=== PATIENT | female | born 1985 | race African-American/Black ===

== ENCOUNTER 2019-06-02 14:05 | Emergency (ER) | payer MEDICAID ==
[~2019-06-02] VITALS: Ht 175.3 cm; Wt 61.0 kg
[~2019-06-02 14:05] MED LIST: PRENATAL
[2019-06-02] MEDS ORDERED: SODIUM CHLORIDE 0.9% 1,000 ML IV ONE (18:44)
[2019-06-02] MEDS ORDERED: ONDANSETRON HCL 4MG/2ML INJ IV STA (18:44)
[2019-06-02 19:01] LABS: CLARITY URINE CLEAR (CLEAR); COLOR URINE YELLOW (YELLOW); KETONES URINE TRACE (NEGATIVE); LEUKOCYTE ESTERASE URINE 2+ (NEGATIVE); NITRITE URINE NEGATIVE (NEGATIVE); OCCULT BLOOD URINE NEGATIVE (NEGATIVE); PH URINE 6.5 (4.5-8.0); PROTEIN URINE NEGATIVE (NEGATIVE); SPECIFIC GRAVITY URINE 1.028 (1.005-1.030)
[2019-06-02 19:04] LABS: CHLORIDE 110 mEq/L (98-107)
[2019-06-02 19:05] LABS: BASOPHILS % 0.6 % (0.0-2.0); EOSINOPHILS % 2.7 % (0.0-5.0); HEMATOCRIT. 36.4 % (36.0-48.0); HEMOGLOBIN. 12.1 g/dL (12.0-16.0); LYMPHOCYTES % 28.3 % (20.0-50.0); MEAN CORPUSCULAR HEMOGLOBIN 30.7 pg (28.0-32.0); MEAN CORPUSCULAR VOLUME 92.1 fL (81.0-99.0); MEAN PLATELET VOLUME 7.5 fl (7.4-10.4); MONOCYTES % 5.6 % (2.0-8.0); NEUTROPHILS % 62.8 % (40.0-76.0); PLATELET 231 x1000/uL (130-400); RED BLOOD CELL COUNT 3.95 mill/uL (4.2-5.4); RED CELL DISTRIBUTION WIDTH 12.6 % (11.6-14.6)
[2019-06-02] MEDS ORDERED: ACETAMINOPHEN 325MG TABLET PO STA (19:07)
[2019-06-02 20:38] VITALS: BP 105/63
== END 2019-06-02 22:56 | disposition home or self-care (01) ==
LOC: ER 14:05
DX: O23.41 Unspecified infection of urinary tract in pregnancy, first trimester (principal); O26.891 Other specified pregnancy related conditions, first trimester; R10.32 Left lower quadrant pain; O21.8 Other vomiting complicating pregnancy; Z3A.01 Less than 8 weeks gestation of pregnancy; Z90.49 Acquired absence of other specified parts of digestive tract
CPT/HCPCS: 36415; 76801; 76817; 80053; 81003; 83690; 84702; 85025; 86850; 86900; 86901; 96361; 96374; 99284; J2405; J7030; Z7610

== ENCOUNTER 2019-06-27 14:25 | Emergency (ER) | payer MEDICAID ==
[~2019-06-27] VITALS: Ht 172.7 cm; Wt 65.0 kg
[2019-06-27] MEDS ORDERED: SODIUM CHLORIDE 0.9% 1,000 ML IV ONE (14:52)
[2019-06-27 15:12] LABS: CLARITY URINE TURBID (CLEAR); COLOR URINE YELLOW (YELLOW); KETONES URINE TRACE (NEGATIVE); LEUKOCYTE ESTERASE URINE 2+ (NEGATIVE); NITRITE URINE NEGATIVE (NEGATIVE); OCCULT BLOOD URINE 3+ (NEGATIVE); PROTEIN URINE TRACE (NEGATIVE); SPECIFIC GRAVITY URINE 1.029 (1.005-1.030)
[2019-06-27 15:27] LABS: *COCAINE SCREEN URINE NEGATIVE (NEGATIVE)
[2019-06-27 15:28] LABS: *AMPHETAMINES SCREEN URINE NEGATIVE (NEGATIVE); *BARBITURATES SCREEN URINE NEGATIVE (NEGATIVE); *BENZODIAZEPINES SCREEN URINE NEGATIVE (NEGATIVE); CANNABINOID URINE SCREEN NEGATIVE (NEGATIVE); METHADONE URINE SCREEN NEGATIVE (NEGATIVE); OPIATES URINE SCREEN NEGATIVE (NEGATIVE); PHENCYCLIDINE URINE SCREEN NEGATIVE (NEGATIVE)
[2019-06-27 15:32] LABS: BASOPHILS % 0.8 % (0.0-2.0); EOSINOPHILS % 1.6 % (0.0-5.0); HEMOGLOBIN. 12.9 g/dL (12.0-16.0); LYMPHOCYTES % 17.2 % (20.0-50.0); MEAN CORPUSCULAR HEMOGLOBIN 31.2 pg (28.0-32.0); MEAN CORPUSCULAR VOLUME 92.1 fL (81.0-99.0); MEAN PLATELET VOLUME 7.5 fl (7.4-10.4); NEUTROPHILS % 74.4 % (40.0-76.0); PLATELET 252 x1000/uL (130-400); RED BLOOD CELL COUNT 4.12 mill/uL (4.2-5.4); RED CELL DISTRIBUTION WIDTH 12.8 % (11.6-14.6)
[2019-06-27 15:35] LABS: CHLORIDE 105 mEq/L (98-107)
[2019-06-27 16:01] LABS: B-HCG QUANTITATIVE 123057 mIU/mL (<3)
[2019-06-27] MEDS ORDERED: ACETAMINOPHEN WITH CODEINE 300/30MG TABLET PO ONE (16:45)
[2019-06-27] MEDS ORDERED: ONDANSETRON 4MG ODT PO ONE (16:45)
[2019-06-27 16:53] VITALS: BP 107/69
== END 2019-06-27 18:24 | disposition home or self-care (01) ==
LOC: ER 14:25
DX: O20.0 Threatened abortion (principal); O26.891 Other specified pregnancy related conditions, first trimester; Z33.2 Encounter for elective termination of pregnancy; Z3A.09 9 weeks gestation of pregnancy; Z90.49 Acquired absence of other specified parts of digestive tract
CPT/HCPCS: 36415; 76801; 80053; 80305; 81003; 81025; 84702; 85025; 85610; 86850; 86900; 86901; 99284; J7030; Q0162; Z7610

== ENCOUNTER 2019-12-09 10:53 | Emergency (ER) | payer MEDICAID ==
[~2019-12-09] VITALS: Ht 172.7 cm; Wt 62.0 kg
[2019-12-09 11:27] LABS: CLARITY URINE CLEAR (CLEAR); COLOR URINE YELLOW (YELLOW); KETONES URINE NEGATIVE (NEGATIVE); LEUKOCYTE ESTERASE URINE TRACE (NEGATIVE); NITRITE URINE NEGATIVE (NEGATIVE); OCCULT BLOOD URINE 2+ (NEGATIVE); PH URINE 6.5 (4.5-8.0); PROTEIN URINE NEGATIVE (NEGATIVE); UROBILINOGEN URINE 0.2 E.U./dL (0.2-1.0)
[2019-12-09 14:15] LABS: BASOPHILS % 0.3 % (0.0-2.0); EOSINOPHILS % 3.2 % (0.0-5.0); HEMATOCRIT. 36.3 % (36.0-48.0); HEMOGLOBIN. 12.6 g/dL (12.0-16.0); LYMPHOCYTES % 25.5 % (20.0-50.0); MEAN CORPUSCULAR VOLUME 92.4 fL (81.0-99.0); MEAN PLATELET VOLUME 7.2 fl (7.4-10.4); MONOCYTES % 5.3 % (2.0-8.0); NEUTROPHILS % 65.7 % (40.0-76.0); PLATELET 210 x1000/uL (130-400); RED BLOOD CELL COUNT 3.93 mill/uL (4.2-5.4); RED CELL DISTRIBUTION WIDTH 12.5 % (11.6-14.6)
[2019-12-09 14:19] LABS: CHLORIDE 110 mEq/L (98-107)
[2019-12-09 14:31] LABS: B-HCG QUANTITATIVE < 1 mIU/mL (<3)
[2019-12-09 15:40] VITALS: BP 122/86
[2019-12-09 15:42] LABS: *AMPHETAMINES SCREEN URINE NEGATIVE (NEGATIVE); *BARBITURATES SCREEN URINE NEGATIVE (NEGATIVE); *BENZODIAZEPINES SCREEN URINE NEGATIVE (NEGATIVE); METHADONE URINE SCREEN NEGATIVE (NEGATIVE); OPIATES URINE SCREEN NEGATIVE (NEGATIVE)
[2019-12-09 15:43] LABS: CANNABINOID URINE SCREEN NEGATIVE (NEGATIVE); PHENCYCLIDINE URINE SCREEN NEGATIVE (NEGATIVE)
[2019-12-09 15:53] LABS: *COCAINE SCREEN URINE PRESUMTIVE POSITIVE (NEGATIVE)
== END 2019-12-09 16:10 | disposition home or self-care (01) ==
LOC: ER 10:53
DX: O02.1 Missed abortion (principal); R03.0 Elevated blood-pressure reading, without diagnosis of hypertension
CPT/HCPCS: 36415; 76830; 76856; 80053; 80305; 81003; 81025; 84702; 85025; 86850; 86900; 99284

== ENCOUNTER 2024-08-28 09:38 | Emergency (ER) | payer MEDICAID ==
[~2024-08-28] VITALS: Ht 172.7 cm; Wt 70.0 kg
[2024-08-28 09:46] VITALS: O2SAT 99
[2024-08-28] MEDS: KETOROLAC 30MG/ML VIAL IM STA (11:05)
[2024-08-28 11:32] LABS: HEMATOCRIT. 37.8 % (36.0-48.0); HEMOGLOBIN. 12.9 g/dL (12.0-16.0); MEAN CORPUSCULAR VOLUME 91.3 fL (81.0-99.0); MEAN PLATELET VOLUME 7.5 fl (7.4-10.4); PLATELET 276 x1000/uL (130-400); RED BLOOD CELL COUNT 4.14 mill/uL (4.2-5.4); WHITE BLOOD COUNT 11.2 x1000/uL (4.5-11.0)
[2024-08-28 11:34] LABS: CLARITY URINE CLOUDY (CLEAR); COLOR URINE YELLOW (YELLOW); GLUCOSE URINE NEGATIVE (NEGATIVE); KETONES URINE 4+ (NEGATIVE); LEUKOCYTE ESTERASE URINE 3+ (NEGATIVE); NITRITE URINE POSITIVE (NEGATIVE); OCCULT BLOOD URINE 3+ (NEGATIVE); PROTEIN URINE 2+ (NEGATIVE); SPECIFIC GRAVITY URINE 1.012 (1.005-1.030)
[2024-08-28 11:35] LABS: CHLORIDE 98 mEq/L (98-107); POTASSIUM 3.3 mEq/L (3.5-5.1); SODIUM 134 mEq/L (136-145)
[2024-08-28 11:36] LABS: CALCIUM 9.4 mg/dL (8.7-10.4); CARBON DIOXIDE 26 mEq/L (21-32)
[2024-08-28 11:39] LABS: DIFFERENTIAL COMMENT 1
[2024-08-28 11:41] LABS: GLUCOSE 99 mg/dL (70-105); UREA NITROGEN BLOOD 9 mg/dL (9-23)
[2024-08-28 11:57] LABS: BACTERIA URINE 4+; SQUAMOUS EPITHELIAL CELL URINE NONE SEEN /lpf (RARE/1+); WBC URINE TNTC /hpf (0-2); YEAST URINE NONE SEEN
[2024-08-28] MEDS ORDERED: IBUP-2029 MT (13:35)
[2024-08-28] MEDS ORDERED: CEPH500T MT (13:35)
[2024-08-28] MEDS ORDERED: MEDR10TA11 MT (13:37)
[2024-08-28 13:59] LABS: PLATELET ESTIMATE NORMAL
[2024-08-28 14:07] VITALS: BP 134/88; PULSE 94; RESP 18; TEMP 36.7; O2SAT 99
== END 2024-08-28 14:10 | disposition home or self-care (01) ==
LOC: ER 09:46
DX: N39.0 Urinary tract infection, site not specified (principal); Z98.51 Tubal ligation status; Z90.49 Acquired absence of other specified parts of digestive tract; Z79.899 Other long term (current) drug therapy
CPT/HCPCS: 99285; 76830; 76856; 80048; 81003; 81025; 85025; 87086; 87186; 36415; 96372; J1885

== ENCOUNTER 2024-09-17 15:04 | Emergency (ER) | payer MEDICAID, OTHER ==
[~2024-09-17] VITALS: Ht 172.7 cm; Wt 65.0 kg
[~2024-09-17 15:04] MED LIST changes: +CEPH500T MT; +IBUP-2029 MT; +MEDR10TA11 MT; -PRENATAL
[2024-09-17 15:16] VITALS: O2SAT 100
[2024-09-17 15:41] LABS: BASOPHILS % 1.3 % (0.0-2.0); EOSINOPHILS % 1.1 % (0.0-5.0); HEMATOCRIT. 32.3 % (36.0-48.0); HEMOGLOBIN. 10.8 g/dL (12.0-16.0); LYMPHOCYTES % 23.5 % (20.0-50.0); MEAN CORPUSCULAR HEMOGLOBIN 30.5 pg (28.0-32.0); MEAN CORPUSCULAR HGB CONC 33.6 g/dL (31.0-37.0); MONOCYTES % 4.2 % (2.0-8.0); NEUTROPHILS % 69.9 % (40.0-76.0); PLATELET 393 x1000/uL (130-400); RED BLOOD CELL COUNT 3.55 mill/uL (4.2-5.4); RED CELL DISTRIBUTION WIDTH 12.7 % (11.6-14.6); WHITE BLOOD COUNT 5.6 x1000/uL (4.5-11.0)
[2024-09-17 15:47] LABS: CHLORIDE 103 mEq/L (98-107); POTASSIUM 3.8 mEq/L (3.5-5.1); SODIUM 139 mEq/L (136-145)
[2024-09-17 15:48] LABS: CARBON DIOXIDE 27 mEq/L (21-32)
[2024-09-17 15:49] LABS: CALCIUM 9.2 mg/dL (8.7-10.4)
[2024-09-17 15:53] LABS: CREATININE 0.8 mg/dL (0.6-1.0); GLUCOSE 91 mg/dL (70-105); UREA NITROGEN BLOOD 8 mg/dL (9-23)
[2024-09-17 17:37] LABS: CLARITY URINE CLEAR (CLEAR); COLOR URINE YELLOW (YELLOW); GLUCOSE URINE NEGATIVE (NEGATIVE); KETONES URINE NEGATIVE (NEGATIVE); LEUKOCYTE ESTERASE URINE 2+ (NEGATIVE); NITRITE URINE NEGATIVE (NEGATIVE); OCCULT BLOOD URINE TRACE (NEGATIVE); PH URINE 6.5 (4.5-8.0); PROTEIN URINE NEGATIVE (NEGATIVE); SPECIFIC GRAVITY URINE 1.011 (1.005-1.030); UROBILINOGEN URINE 0.2 E.U./dL (0.2-1.0)
[2024-09-17 17:51] LABS: BACTERIA URINE NONE SEEN; RBC URINE 0-2 /hpf (0-2); SQUAMOUS EPITHELIAL CELL URINE FEW /lpf (RARE/1+)
[2024-09-17 18:28] VITALS: BP 129/76; PULSE 99; RESP 18; TEMP 37.1; O2SAT 100
== END 2024-09-17 18:30 | disposition home or self-care (01) ==
LOC: ER 15:04
DX: N93.9 Abnormal uterine and vaginal bleeding, unspecified (principal); N39.0 Urinary tract infection, site not specified; I95.89 Other hypotension; Z79.3 Long term (current) use of hormonal contraceptives; Z90.49 Acquired absence of other specified parts of digestive tract; Z98.51 Tubal ligation status
CPT/HCPCS: 36415; 80048; 81003; 85025; 99283

== ENCOUNTER 2024-11-27 10:53 | Emergency (ER) | payer MEDICAID ==
[~2024-11-27] VITALS: Ht 172.7 cm; Wt 67.0 kg
[2024-11-27 11:07] VITALS: O2SAT 100
[2024-11-27 11:24] LABS: BASOPHILS % 0.8 % (0.0-2.0); EOSINOPHILS % 2.2 % (0.0-5.0); HEMATOCRIT. 31.1 % (36.0-48.0); HEMOGLOBIN. 10.2 g/dL (12.0-16.0); LYMPHOCYTES % 26.3 % (20.0-50.0); MEAN CORPUSCULAR HEMOGLOBIN 27.1 pg (28.0-32.0); MEAN CORPUSCULAR HGB CONC 32.7 g/dL (31.0-37.0); MEAN CORPUSCULAR VOLUME 82.8 fL (81.0-99.0); MEAN PLATELET VOLUME 6.4 fl (7.4-10.4); MONOCYTES % 6.5 % (2.0-8.0); NEUTROPHILS % 64.2 % (40.0-76.0); PLATELET 412 x1000/uL (130-400); RED BLOOD CELL COUNT 3.76 mill/uL (4.2-5.4); RED CELL DISTRIBUTION WIDTH 13.1 % (11.6-14.6); WHITE BLOOD COUNT 5.1 x1000/uL (4.5-11.0)
[2024-11-27 11:33] LABS: CARBON DIOXIDE 28 mEq/L (21-32); CHLORIDE 105 mEq/L (98-107); POTASSIUM 3.9 mEq/L (3.5-5.1); SODIUM 140 mEq/L (136-145)
[2024-11-27 11:34] LABS: CALCIUM 8.7 mg/dL (8.7-10.4)
[2024-11-27 11:38] LABS: CREATININE 0.7 mg/dL (0.6-1.0); GLUCOSE 96 mg/dL (70-105)
[2024-11-27 11:39] LABS: UREA NITROGEN BLOOD 7 mg/dL (9-23)
[2024-11-27 11:44] LABS: PROTHROMBIN TIME 10.4 sec (9.6-11.0)
[2024-11-27 12:02] LABS: TROPONIN I HIGH SENSITIVITY < 4 ng/L (3.0-34)
[2024-11-27 13:33] LABS: CLARITY URINE CLEAR (CLEAR); COLOR URINE YELLOW (YELLOW); GLUCOSE URINE NEGATIVE (NEGATIVE); KETONES URINE NEGATIVE (NEGATIVE); LEUKOCYTE ESTERASE URINE NEGATIVE (NEGATIVE); NITRITE URINE NEGATIVE (NEGATIVE); OCCULT BLOOD URINE TRACE (NEGATIVE); PH URINE 7.5 (4.5-8.0); PROTEIN URINE NEGATIVE (NEGATIVE); SPECIFIC GRAVITY URINE 1.013 (1.005-1.030); UROBILINOGEN URINE 0.2 E.U./dL (0.2-1.0)
[2024-11-27 14:25] LABS: RBC URINE 0-2 /hpf (0-2); SQUAMOUS EPITHELIAL CELL URINE FEW /lpf (RARE/1+); WBC URINE 0-2 /hpf (0-2)
[2024-11-27 14:26] LABS: BACTERIA URINE TRACE
[2024-11-27 14:34] LABS: ALANINE AMINOTRANSFERASE < 7 IU/L (10-49); ALBUMIN 4.1 g/dL (3.2-4.8); ASPARTATE AMINOTRANSFERASE 14 IU/L (<34); BILIRUBIN DIRECT 0.1 mg/dL (<=3.0); BILIRUBIN TOTAL 0.3 mg/dL (0.1-1.0); PROTEIN TOTAL 7.5 g/dL (6.0-8.3)
[2024-11-27 14:41] LABS: HCG SCREEN NEGATIVE
[2024-11-27] MEDS: IBUPROFEN 600MG TABLET PO ONE (16:15)
[2024-11-27] MEDS ORDERED: METR-167 MT (16:17)
[2024-11-27] MEDS ORDERED: IBUP-2029 MT (16:17)
[2024-11-27 16:40] VITALS: BP 110/70; PULSE 70; RESP 16; TEMP 36.8; O2SAT 100
== END 2024-11-27 16:42 | disposition home or self-care (01) ==
LOC: ER 10:53
DX: N76.0 Acute vaginitis (principal); R07.89 Other chest pain; Z98.51 Tubal ligation status; Z90.49 Acquired absence of other specified parts of digestive tract
CPT/HCPCS: 36415; 71046; 76830; 76856; 80048; 80076; 81003; 81025; 83880; 84484; 84703; 85025; 86592; 87210; 87491; 87591; 93005; 99285

== ENCOUNTER 2025-01-01 16:18 | Inpatient (IN) | payer MEDICAID ==
[~2025-01-01] VITALS: Ht 172.7 cm; Wt 68.0 kg
[~2025-01-01 16:18] MED LIST changes: +METR-167 MT
[2025-01-01] MEDS: KETOROLAC 15MG/ML VIAL IV ONE (17:09)
[2025-01-01] MEDS: ONDANSETRON HCL 4MG/2ML INJ IV STA (17:09)
[2025-01-01 17:10] LABS: BASOPHILS % 0.7 % (0.0-2.0); DIFFERENTIAL COMMENT 0; EOSINOPHILS % 1.2 % (0.0-5.0); HEMATOCRIT. 29.8 % (36.0-48.0); HEMOGLOBIN. 9.6 g/dL (12.0-16.0); LYMPHOCYTES % 23.5 % (20.0-50.0); MEAN CORPUSCULAR HEMOGLOBIN 25.3 pg (28.0-32.0); MEAN CORPUSCULAR HGB CONC 32.3 g/dL (31.0-37.0); MEAN CORPUSCULAR VOLUME 78.2 fL (81.0-99.0); MEAN PLATELET VOLUME 6.4 fl (7.4-10.4); MONOCYTES % 6.8 % (2.0-8.0); NEUTROPHILS % 67.8 % (40.0-76.0); PLATELET 458 x1000/uL (130-400); RED BLOOD CELL COUNT 3.81 mill/uL (4.2-5.4); WHITE BLOOD COUNT 5.9 x1000/uL (4.5-11.0)
[2025-01-01 17:20] LABS: CHLORIDE 104 mEq/L (98-107); POTASSIUM 3.7 mEq/L (3.5-5.1); PROTHROMBIN TIME 10.9 sec (9.6-11.0); SODIUM 138 mEq/L (136-145)
[2025-01-01] MEDS: SODIUM CHLORIDE 0.9% 1,000 ML IV ONE (17:20)
[2025-01-01 17:21] LABS: CALCIUM 8.7 mg/dL (8.7-10.4); CARBON DIOXIDE 26 mEq/L (21-32)
[2025-01-01 17:26] LABS: CREATININE 0.7 mg/dL (0.6-1.0); GLUCOSE 89 mg/dL (70-105); UREA NITROGEN BLOOD < 5 mg/dL (9-23)
[2025-01-01 17:28] LABS: ALANINE AMINOTRANSFERASE < 7 IU/L (10-49); ALBUMIN 3.8 g/dL (3.2-4.8); ASPARTATE AMINOTRANSFERASE 8 IU/L (<34); BILIRUBIN DIRECT 0.1 mg/dL (<=3.0); BILIRUBIN TOTAL 0.3 mg/dL (0.1-1.0); PROTEIN TOTAL 7.1 g/dL (6.0-8.3)
[2025-01-01 17:30] LABS: CLARITY URINE CLEAR (CLEAR); COLOR URINE YELLOW (YELLOW); GLUCOSE URINE NEGATIVE (NEGATIVE); KETONES URINE NEGATIVE (NEGATIVE); LEUKOCYTE ESTERASE URINE NEGATIVE (NEGATIVE); NITRITE URINE NEGATIVE (NEGATIVE); OCCULT BLOOD URINE 1+ (NEGATIVE); PROTEIN URINE NEGATIVE (NEGATIVE); SPECIFIC GRAVITY URINE 1.008 (1.005-1.030); UROBILINOGEN URINE 0.2 E.U./dL (0.2-1.0)
[2025-01-01 17:38] LABS: HCG SCREEN NEGATIVE
[2025-01-01 17:56] LABS: BACTERIA URINE TRACE; SQUAMOUS EPITHELIAL CELL URINE FEW /lpf (RARE/1+); WBC URINE 0-2 /hpf (0-2)
[2025-01-01] MEDS: METOCLOPRAMIDE HCL 10MG/2ML VIAL IV ONE (21:44)
[2025-01-01] MEDS: MORPHINE SULFATE 4 MG/ML INJ (FOR IV/IM USE) IV ONE (21:44)
[2025-01-01] MEDS ORDERED: CLONIDINE 0.1MG TABLET PO PRN (23:15)
[2025-01-01] MEDS ORDERED: IPRATROPIUM/ALBUTEROL 0.5-3(2.5)MG/3ML NEB HHN PRN (23:15)
[2025-01-01] MEDS ORDERED: GUAIFENESIN 200MG/10ML SUGAR FREE UDC PO PRN (23:15)
[2025-01-01] MEDS ORDERED: ACETAMINOPHEN 325MG TABLET PO PRN (23:15)
[2025-01-01 23:30] VITALS: BP 101/57; PULSE 65; RESP 18; TEMP 36.5; TEMP 36.6; O2SAT 100
[2025-01-02] VITALS: BP 99/61; PULSE 63; RESP 17; TEMP 36.9; O2SAT 100
[2025-01-02] MEDS: ONDANSETRON HCL 4MG/2ML INJ IV PRN (00:35)
[2025-01-02] MEDS: SODIUM CHLORIDE 0.9% 1,000 ML IV SCH (00:35)
[2025-01-02] MEDS: ACETAMINOPHEN 325MG TABLET PO PRN (00:35)
[2025-01-02 01:07] LABS: IRON 15 ug/dL (50-170)
[2025-01-02 01:10] LABS: TOTAL IRON BINDING CAPACITY 257 ug/dl (250-425)
[2025-01-02 01:13] LABS: FOLIC ACID (FOLATE) SERUM 6.93 ng/mL (>5.38); VITAMIN B12 SERUM 643 pg/mL (211-911)
[2025-01-02] MEDS ORDERED: FERR325T6 PO (01:38)
[2025-01-02 04:00] VITALS: BP 100/65; PULSE 60; RESP 18; TEMP 36.8; O2SAT 100
[2025-01-02] MEDS: IRON SUCROSE COMPLEX 100 MG/5 ML ML IV NR (06:06)
[2025-01-02 07:08] LABS: BASOPHILS % 0.8 % (0.0-2.0); CHLORIDE 108 mEq/L (98-107); DIFFERENTIAL COMMENT 0; EOSINOPHILS % 2.2 % (0.0-5.0); HEMATOCRIT. 27.3 % (36.0-48.0); HEMOGLOBIN. 8.8 g/dL (12.0-16.0); LYMPHOCYTES % 28.1 % (20.0-50.0); MEAN CORPUSCULAR HEMOGLOBIN 25.5 pg (28.0-32.0); MEAN CORPUSCULAR HGB CONC 32.4 g/dL (31.0-37.0); MEAN CORPUSCULAR VOLUME 78.7 fL (81.0-99.0); MEAN PLATELET VOLUME 6.8 fl (7.4-10.4); MONOCYTES % 8.4 % (2.0-8.0); NEUTROPHILS % 60.5 % (40.0-76.0); PLATELET 394 x1000/uL (130-400); POTASSIUM 3.7 mEq/L (3.5-5.1); RED BLOOD CELL COUNT 3.47 mill/uL (4.2-5.4); RED CELL DISTRIBUTION WIDTH 14.3 % (11.6-14.6); SODIUM 141 mEq/L (136-145); WHITE BLOOD COUNT 4.8 x1000/uL (4.5-11.0)
[2025-01-02 07:09] LABS: CALCIUM 8.1 mg/dL (8.7-10.4); CARBON DIOXIDE 24 mEq/L (21-32)
[2025-01-02 07:14] LABS: CREATININE 0.6 mg/dL (0.6-1.0); GLUCOSE 71 mg/dL (70-105); TRIGLYCERIDE 73 mg/dL (0-150); UREA NITROGEN BLOOD < 5 mg/dL (9-23)
[2025-01-02 07:15] LABS: LDL CHOLESTEROL 50 mg/dL (5-100)
[2025-01-02 07:16] LABS: ALBUMIN 3.3 g/dL (3.2-4.8); CHOLESTEROL 98 mg/dL (<200); HDL CHOLESTEROL 34 mg/dL (>65)
[2025-01-02 07:18] LABS: THYROID STIMULATING HORMONE 1.83 uIU/mL (0.55-4.78)
[2025-01-02 08:00] VITALS: BP 108/66; PULSE 74; RESP 18; TEMP 36.6; O2SAT 100
[2025-01-02 08:40] LABS: *AMPHETAMINES SCREEN URINE NEGATIVE (NEGATIVE); *BARBITURATES SCREEN URINE NEGATIVE (NEGATIVE); *BENZODIAZEPINES SCREEN URINE NEGATIVE (NEGATIVE); *COCAINE SCREEN URINE PRESUMPTIVE POSITIVE (NEGATIVE); CANNABINOID URINE SCREEN PRESUMPTIVE POSITIVE (NEGATIVE); ECSTASY MDMA SCREEN URINE NEGATIVE (NEGATIVE); METHADONE URINE SCREEN NEGATIVE (NEGATIVE); OPIATES URINE SCREEN NEGATIVE (NEGATIVE); PHENCYCLIDINE URINE SCREEN NEGATIVE (NEGATIVE)
[2025-01-02] MEDS: METRONIDAZOLE 500MG TABLET PO SCH (08:50)
[2025-01-02] MEDS: DOCUSATE SODIUM 100MG CAPSULE PO PRN (11:59)
[2025-01-02 12:00] VITALS: BP 92/51; PULSE 74; RESP 18; TEMP 36.6; O2SAT 100
[2025-01-02] MEDS ORDERED: KETOROLAC 15MG/ML VIAL IV PRN (12:15)
[2025-01-02] MEDS ORDERED: KETO10TA2 MT (12:22)
[2025-01-02 13:22] VITALS: BP 102/67; PULSE 65; TEMP 96.1; O2SAT 98
[2025-01-02 13:46] VITALS: TEMP 96.1
== END 2025-01-02 15:18 | disposition home or self-care (01) | DRG 532 ==
LOC: ER 16:18 → 5WST 22:04 → EDBEDREQ 22:47 → EDBEDREQSVC 22:47 → EDBEDREQTM 22:47 → ENRESERV 23:01 → 5WST 23:33
PROVIDERS: ADMIT Internal Medicine; ATTEND Internal Medicine
DX: D25.9 Leiomyoma of uterus, unspecified (principal); D50.9 Iron deficiency anemia, unspecified; N76.0 Acute vaginitis; F12.90 Cannabis use, unspecified, uncomplicated; F14.10 Cocaine abuse, uncomplicated; N92.0 Excessive and frequent menstruation with regular cycle; R19.09 Other intra-abdominal and pelvic swelling, mass and lump; R31.9 Hematuria, unspecified; Z87.440 Personal history of urinary (tract) infections; Z90.49 Acquired absence of other specified parts of digestive tract
CPT/HCPCS: 36415; 74176; 76830; 76856; 80048; 80061; 80076; 80305; 81003; 82040; 82607; 82746; 83540; 83550; 84439; 84443; 84703; 85025; 99285; J1885; J2270; J2405; J2765; J7030

== ENCOUNTER 2025-01-07 17:03 | Emergency (ER) | payer MEDICAID ==
[~2025-01-07] VITALS: Ht 172.7 cm; Wt 66.0 kg
[~2025-01-07 17:03] MED LIST changes: -CEPH500T MT; +FERR325T6 PO; -IBUP-2029 MT; +KETO10TA2 MT; -MEDR10TA11 MT; -METR-167 MT
[2025-01-07 17:15] VITALS: O2SAT 100
[2025-01-07 18:16] LABS: BASOPHILS % 0.3 % (0.0-2.0); DIFFERENTIAL COMMENT 0; EOSINOPHILS % 0.9 % (0.0-5.0); HEMATOCRIT. 28.3 % (36.0-48.0); LYMPHOCYTES % 17.9 % (20.0-50.0); MEAN CORPUSCULAR HEMOGLOBIN 24.6 pg (28.0-32.0); MEAN CORPUSCULAR HGB CONC 31.7 g/dL (31.0-37.0); MEAN CORPUSCULAR VOLUME 77.5 fL (81.0-99.0); MEAN PLATELET VOLUME 6.5 fl (7.4-10.4); MONOCYTES % 8.7 % (2.0-8.0); NEUTROPHILS % 72.2 % (40.0-76.0); PLATELET 464 x1000/uL (130-400); RED BLOOD CELL COUNT 3.66 mill/uL (4.2-5.4); RED CELL DISTRIBUTION WIDTH 14.8 % (11.6-14.6); WHITE BLOOD COUNT 5.7 x1000/uL (4.5-11.0)
[2025-01-07 18:22] LABS: CHLORIDE 104 mEq/L (98-107); POTASSIUM 3.9 mEq/L (3.5-5.1); SODIUM 137 mEq/L (136-145)
[2025-01-07 18:23] LABS: CALCIUM 8.8 mg/dL (8.7-10.4); CARBON DIOXIDE 28 mEq/L (21-32)
[2025-01-07 18:26] LABS: HCG SCREEN NEGATIVE
[2025-01-07 18:27] LABS: CREATININE 0.7 mg/dL (0.6-1.0)
[2025-01-07 18:28] LABS: GLUCOSE 119 mg/dL (70-105); UREA NITROGEN BLOOD < 5 mg/dL (9-23)
[2025-01-07 18:29] LABS: ALANINE AMINOTRANSFERASE < 7 IU/L (10-49)
[2025-01-07 18:30] LABS: BILIRUBIN DIRECT < 0.1 mg/dL (<=3.0); BILIRUBIN TOTAL 0.2 mg/dL (0.1-1.0); PROTEIN TOTAL 7.2 g/dL (6.0-8.3)
[2025-01-07 18:41] LABS: ASPARTATE AMINOTRANSFERASE < 8 IU/L (<34)
[2025-01-07 18:47] LABS: COLOR URINE YELLOW (YELLOW)
[2025-01-07 18:48] LABS: CLARITY URINE CLEAR (CLEAR); GLUCOSE URINE NEGATIVE (NEGATIVE); KETONES URINE NEGATIVE (NEGATIVE); LEUKOCYTE ESTERASE URINE NEGATIVE (NEGATIVE); NITRITE URINE NEGATIVE (NEGATIVE); OCCULT BLOOD URINE 1+ (NEGATIVE); PH URINE 7.5 (4.5-8.0); PROTEIN URINE NEGATIVE (NEGATIVE); SPECIFIC GRAVITY URINE 1.014 (1.005-1.030)
[2025-01-07 19:05] LABS: SQUAMOUS EPITHELIAL CELL URINE FEW /lpf (RARE/1+); WBC URINE 0-2 /hpf (0-2)
[2025-01-07 19:06] LABS: BACTERIA URINE TRACE
[2025-01-07] MEDS ORDERED: IBUP-2030 MT (19:19)
[2025-01-07] MEDS ORDERED: KETOROLAC 30MG/ML VIAL IM ONE (19:30)
[2025-01-07] MEDS: KETOROLAC 30MG/ML VIAL IM SCH (19:34)
[2025-01-07 19:43] VITALS: BP 111/66; PULSE 80; RESP 16; TEMP 37.9; O2SAT 99
== END 2025-01-07 19:52 | disposition home or self-care (01) ==
LOC: ER 17:03
DX: R10.2 Pelvic and perineal pain (principal); D64.9 Anemia, unspecified; Z98.51 Tubal ligation status; Z90.49 Acquired absence of other specified parts of digestive tract
CPT/HCPCS: 80076; 80048; 81003; 81025; 84703; 83690; 85025; 36415; 96372; 99283; J1885; Z7610

== ENCOUNTER 2025-02-25 17:34 | Emergency (ER) | payer MEDICAID, OTHER ==
[~2025-02-25] VITALS: Ht 172.7 cm; Wt 58.0 kg
[~2025-02-25 17:34] MED LIST changes: +HYDR-4001 MT; -KETO10TA2 MT; +MIRT-144 MT; +ONDA-239 PO; +TRAM50TA3 MT
[2025-02-25 17:48] VITALS: O2SAT 100
[2025-02-25 20:37] LABS: BASOPHILS % 0.4 % (0.0-2.0); EOSINOPHILS % 0.7 % (0.0-5.0); HEMATOCRIT. 32.5 % (36.0-48.0); HEMOGLOBIN. 10.3 g/dL (12.0-16.0); LYMPHOCYTES % 10.7 % (20.0-50.0); MEAN PLATELET VOLUME 6.3 fl (7.4-10.4); MONOCYTES % 5.3 % (2.0-8.0); NEUTROPHILS % 82.9 % (40.0-76.0); PLATELET 577 x1000/uL (130-400); RED BLOOD CELL COUNT 4.24 mill/uL (4.2-5.4); RED CELL DISTRIBUTION WIDTH 21.0 % (11.6-14.6)
[2025-02-25 20:39] LABS: HCG SCREEN NEGATIVE
[2025-02-25 20:42] LABS: CREATININE 0.6 mg/dL (0.6-1.0); TROPONIN I HIGH SENSITIVITY < 4 ng/L (3.0-34); UREA NITROGEN BLOOD 11 mg/dL (9-23)
[2025-02-25 21:38] VITALS: BP 102/58; PULSE 72; RESP 18; TEMP 37; O2SAT 100
== END 2025-02-25 21:44 | disposition home or self-care (01) ==
LOC: ER 17:34
DX: R53.1 Weakness (principal); I10 Essential (primary) hypertension; Z79.899 Other long term (current) drug therapy; Z98.890 Other specified postprocedural states; Z98.51 Tubal ligation status; Z90.49 Acquired absence of other specified parts of digestive tract
CPT/HCPCS: 36415; 80048; 84484; 84703; 85025; 93005; 93971; 99284